=== PATIENT | male | born 1950 | race Caucasian/White ===

== ENCOUNTER 2017-04-08 14:51 | Inpatient (IN) | payer MEDICARE, BC ==
[~2017-04-08] VITALS: Ht 172.7 cm; Wt 81.6 kg
[2017-04-08] MEDS ORDERED: NALT50TA PO (15:57)
[2017-04-08] MEDS ORDERED: THIA100T13 PO (15:57)
[2017-04-08] MEDS ORDERED: LEVE500T20 PO (15:57)
[2017-04-08] MEDS ORDERED: POTA10CA43 PO (15:57)
[2017-04-08] MEDS ORDERED: GUAI100S11 PO (15:57)
[2017-04-08] MEDS ORDERED: FOLI1TAB16 PO (15:57)
[2017-04-08] MEDS ORDERED: MAGN400T6 PO (15:57)
[2017-04-08] MEDS ORDERED: MULT1TAB73 PO (15:57)
[2017-04-08] MEDS ORDERED: DIAZ10TA4 PO (15:57)
[2017-04-08] MEDS ORDERED: PROP20TA7 PO (15:57)
[2017-04-08] MEDS ORDERED: CHOL10002 PO (15:57)
[2017-04-08] MEDS ORDERED: PRAV20TA4 PO (15:57)
[2017-04-08] MEDS ORDERED: MELA3TAB PO (15:57)
[2017-04-08 16:00] VITALS: BP 122/82
[2017-04-08] MEDS ORDERED: TEMAZEPAM 7.5 MG CAPSULE PO PRN ×2 (16:00)
[2017-04-08] MEDS ORDERED: MAG HYDROX/AL HYDROX/SIMETH 30 ML UDC PO PRN (16:00)
[2017-04-08] MEDS ORDERED: MAGNESIUM HYDROXIDE 30 ML UDC PO PRN ×2 (16:00)
[2017-04-08] MEDS ORDERED: ACETAMINOPHEN 325 MG TABLET PO PRN ×2 (16:00)
[2017-04-08] MEDS ORDERED: LORAZEPAM 0.5 MG TABLET PO PRN ×2 (16:00)
[2017-04-08 16:57] VITALS: BP 124/87
[2017-04-08] MEDS ORDERED: Medication Not On Formulary EA (Melatonin 3 MG) PO SCH (18:30)
[2017-04-08] MEDS ORDERED: GUAIFENESIN 300 MG/15 ML UDC PO PRN (18:30)
[2017-04-08 20:00] VITALS: BP 126/78
[2017-04-08] MEDS: PROPRANOLOL HCL 40 MG TABLET PO SCH (20:42)
[2017-04-08] MEDS ORDERED: ATORVASTATIN 10 MG TABLET ONE (20:48)
[2017-04-08] MEDS: LEVETIRACETAM (250 MG) 250 MG TABLET PO SCH (21:05)
[2017-04-09 07:25] LABS: CALCIUM, SERUM 9.6 mg/dL (8.5-10.1); CREATININE 0.9 mg/dL (0.6-1.3); POTASSIUM 4.4 mmol/L (3.5-5.1)
[2017-04-09 08:00] VITALS: BP 111/72
[2017-04-09] MEDS: MAGNESIUM OXIDE 400 MG TABLET PO SCH ×2 (08:14→17:15)
[2017-04-09] MEDS: THIAMINE HCL 100 MG TABLET PO SCH (08:14)
[2017-04-09] MEDS: LEVETIRACETAM (250 MG) 250 MG TABLET PO SCH ×2 (08:14→20:12)
[2017-04-09] MEDS: FOLIC ACID 1 MG TABLET PO SCH (08:15)
[2017-04-09] MEDS: MULTIVIT, IRON, MIN NO. 8, FA 1 TAB PO SCH (08:15)
[2017-04-09] MEDS: POTASSIUM CHLORIDE 20 MEQ TAB.PRT.SR PO SCH (08:16)
[2017-04-09] MEDS: CHOLECALCIFEROL 1,000 UNIT TABLET (VIT D3) PO SCH (08:16)
[2017-04-09] MEDS: PROPRANOLOL HCL 40 MG TABLET PO SCH ×2 (08:16→17:00)
[2017-04-09] MEDS: FLUTICASONE PROPIONATE 16 GM BOTTLE NS PRN (09:05)
[2017-04-09 09:09] LABS: CHOLESTEROL 125 mg/dL (<200); HDL CHOLESTEROL 24 mg/dL (40-60); LDL 79 mg/dL (0-99); TRIGLYCERIDES 104 mg/dL (30-150)
[2017-04-09] MEDS ORDERED: NALTREXONE PO SCH (11:30)
[2017-04-09 16:00] VITALS: BP 107/71
[2017-04-09 20:00] VITALS: BP 121/91
[2017-04-09] MEDS: ATORVASTATIN 10 MG TABLET PO SCH (21:34)
[2017-04-10 08:00] VITALS: BP 134/88
[2017-04-10] MEDS: FOLIC ACID 1 MG TABLET PO SCH (08:26)
[2017-04-10] MEDS: PROPRANOLOL HCL 40 MG TABLET PO SCH ×2 (08:26→16:35)
[2017-04-10] MEDS: POTASSIUM CHLORIDE 20 MEQ TAB.PRT.SR PO SCH (08:26)
[2017-04-10] MEDS: MULTIVIT, IRON, MIN NO. 8, FA 1 TAB PO SCH (08:26)
[2017-04-10] MEDS: LEVETIRACETAM (250 MG) 250 MG TABLET PO SCH ×2 (08:26→20:32)
[2017-04-10] MEDS: MAGNESIUM OXIDE 400 MG TABLET PO SCH ×2 (08:26→16:35)
[2017-04-10] MEDS: THIAMINE HCL 100 MG TABLET PO SCH (08:27)
[2017-04-10] MEDS: CHOLECALCIFEROL 1,000 UNIT TABLET (VIT D3) PO SCH (08:27)
[2017-04-10 16:00] VITALS: BP 110/74
[2017-04-10 20:00] VITALS: BP 129/87
[2017-04-10] MEDS: ATORVASTATIN 10 MG TABLET PO SCH (21:46)
[2017-04-11] MEDS: MAGNESIUM OXIDE 400 MG TABLET PO SCH ×2 (08:31→16:08)
[2017-04-11] MEDS: FOLIC ACID 1 MG TABLET PO SCH (08:31)
[2017-04-11] MEDS: PROPRANOLOL HCL 40 MG TABLET PO SCH ×2 (08:31→16:08)
[2017-04-11] MEDS: POTASSIUM CHLORIDE 20 MEQ TAB.PRT.SR PO SCH (08:31)
[2017-04-11] MEDS: FLUTICASONE PROPIONATE 16 GM BOTTLE NS PRN (08:32)
[2017-04-11] MEDS: LEVETIRACETAM (250 MG) 250 MG TABLET PO SCH ×2 (08:32→20:29)
[2017-04-11] MEDS: CHOLECALCIFEROL 1,000 UNIT TABLET (VIT D3) PO SCH (08:32)
[2017-04-11] MEDS: THIAMINE HCL 100 MG TABLET PO SCH (08:32)
[2017-04-11] MEDS: MULTIVIT, IRON, MIN NO. 8, FA 1 TAB PO SCH (08:32)
[2017-04-11 08:34] VITALS: BP 120/79
[2017-04-11 16:00] VITALS: BP 125/80
[2017-04-11] MEDS: SERTRALINE HCL 25 MG TABLET PO SCH (16:07)
[2017-04-11 18:32] VITALS: BP 121/84
[2017-04-11] MEDS: ATORVASTATIN 10 MG TABLET PO SCH (20:29)
[2017-04-11 22:00] VITALS: BP 119/78
[2017-04-12] MEDS: MAG HYDROX/AL HYDROX/SIMETH 30 ML UDC PO PRN ×2 (02:43→16:29)
[2017-04-12 07:17] LABS: CALCIUM, SERUM 9.2 mg/dL (8.5-10.1); CREATININE 0.7 mg/dL (0.6-1.3)
[2017-04-12 08:00] VITALS: BP 105/64
[2017-04-12] MEDS: PROPRANOLOL HCL 40 MG TABLET PO SCH ×2 (09:00→17:42)
[2017-04-12] MEDS: FOLIC ACID 1 MG TABLET PO SCH (09:06)
[2017-04-12] MEDS: POTASSIUM CHLORIDE 20 MEQ TAB.PRT.SR PO SCH (09:06)
[2017-04-12] MEDS: MAGNESIUM OXIDE 400 MG TABLET PO SCH ×2 (09:07→16:29)
[2017-04-12] MEDS: LEVETIRACETAM (250 MG) 250 MG TABLET PO SCH ×2 (09:07→21:17)
[2017-04-12] MEDS: MULTIVIT, IRON, MIN NO. 8, FA 1 TAB PO SCH (09:07)
[2017-04-12] MEDS: THIAMINE HCL 100 MG TABLET PO SCH (09:11)
[2017-04-12] MEDS: SERTRALINE HCL 25 MG TABLET PO SCH (09:13)
[2017-04-12] MEDS: CHOLECALCIFEROL 1,000 UNIT TABLET (VIT D3) PO SCH (09:13)
[2017-04-12 16:00] VITALS: BP 111/76
[2017-04-12 20:06] VITALS: BP 118/81
[2017-04-12] MEDS: ATORVASTATIN 10 MG TABLET PO SCH (21:17)
[2017-04-13 08:00] VITALS: BP 125/74
[2017-04-13] MEDS: PROPRANOLOL HCL 40 MG TABLET PO SCH ×2 (08:28→17:37)
[2017-04-13] MEDS: LEVETIRACETAM (250 MG) 250 MG TABLET PO SCH ×2 (08:29→20:58)
[2017-04-13] MEDS: POTASSIUM CHLORIDE 20 MEQ TAB.PRT.SR PO SCH (08:29)
[2017-04-13] MEDS: CHOLECALCIFEROL 1,000 UNIT TABLET (VIT D3) PO SCH (08:29)
[2017-04-13] MEDS: FOLIC ACID 1 MG TABLET PO SCH (08:29)
[2017-04-13] MEDS: THIAMINE HCL 100 MG TABLET PO SCH (08:29)
[2017-04-13] MEDS: MULTIVIT, IRON, MIN NO. 8, FA 1 TAB PO SCH (08:29)
[2017-04-13] MEDS: SERTRALINE HCL 25 MG TABLET PO SCH (08:29)
[2017-04-13] MEDS: MAGNESIUM OXIDE 400 MG TABLET PO SCH ×2 (08:29→17:37)
[2017-04-13] MEDS: FLUTICASONE PROPIONATE 16 GM BOTTLE NS PRN (09:05)
[2017-04-13 16:00] VITALS: BP 118/81
[2017-04-13] MEDS: MAG HYDROX/AL HYDROX/SIMETH 30 ML UDC PO PRN (17:37)
[2017-04-13 19:48] VITALS: BP 114/67
[2017-04-13] MEDS: ATORVASTATIN 10 MG TABLET PO SCH (21:00)
[2017-04-14 02:16] VITALS: BP 160/69
[2017-04-14 08:00] VITALS: BP 119/71
[2017-04-14] MEDS: FOLIC ACID 1 MG TABLET PO SCH (09:01)
[2017-04-14] MEDS: MULTIVIT, IRON, MIN NO. 8, FA 1 TAB PO SCH (09:01)
[2017-04-14] MEDS: THIAMINE HCL 100 MG TABLET PO SCH (09:01)
[2017-04-14] MEDS: MAGNESIUM OXIDE 400 MG TABLET PO SCH ×2 (09:01→16:46)
[2017-04-14] MEDS: PROPRANOLOL HCL 40 MG TABLET PO SCH ×2 (09:01→16:46)
[2017-04-14] MEDS: LEVETIRACETAM (250 MG) 250 MG TABLET PO SCH (09:01)
[2017-04-14] MEDS: CHOLECALCIFEROL 1,000 UNIT TABLET (VIT D3) PO SCH (09:01)
[2017-04-14] MEDS: POTASSIUM CHLORIDE 20 MEQ TAB.PRT.SR PO SCH (09:01)
[2017-04-14] MEDS: SERTRALINE HCL 25 MG TABLET PO SCH (09:01)
[2017-04-14 16:00] VITALS: BP 112/76
[2017-04-14 16:46] VITALS: BP 112/76
[2017-04-14] MEDS: MAG HYDROX/AL HYDROX/SIMETH 30 ML UDC PO PRN (16:46)
== END 2017-04-14 17:45 | disposition home or self-care (01) | DRG 885 ==
LOC: GPS 14:51 → GPSOV2 04-11 17:50
PROVIDERS: ADMIT Psychiatry & Neurology Psychiatry; ATTEND Family Medicine
DX: F33.1 Major depressive disorder, recurrent, moderate (principal); F11.20 Opioid dependence, uncomplicated; E78.5 Hyperlipidemia, unspecified; I10 Essential (primary) hypertension; R56.9 Unspecified convulsions; F10.20 Alcohol dependence, uncomplicated
CPT/HCPCS: 36415; 80048-TC; 80061-TC; 87081-TC; Z7610